=== PATIENT | male | born 1960 | race Caucasian/White ===

== ENCOUNTER 2020-02-03 18:37 | Emergency (ER) | payer MEDICAID, SELFPAY ==
[2020-02-03 18:39] VITALS: BP 156/103; PULSE 80; RESP 16; TEMP 36.7; O2SAT 100
[2020-02-03 18:40] VITALS: BP 156/103; PULSE 81; RESP 16; TEMP 36.7; O2SAT 99; BMI 28.3
--- NOTE | 2020-02-03 18:49 | EKG12_ITS ---
Test Reason : REPEAT EKG Blood Pressure : / mmHG Vent. Rate : 074 BPM Atrial Rate : 074 BPM P-R Int : 160 ms QRS Dur : 084 ms QT Int : 400 ms P-R-T Axes : 049 032 068 degrees QTc Int : 444 ms Normal sinus rhythm Possible Inferior infarct , age undetermined Abnormal ECG Confirmed by RADHA VENCES, JET ([id number]), editor managing newspaper RONNY DWYER ([id number]) on 02/08/2020 8:06:26 AM Referred By: ROJAS Confirmed By:JET GARCIA MD
--- NOTE | 2020-02-03 18:50 | ED.DCSUM_ITS ---
History of Present Illness Chief Complaint: Confusion Informant: Patient Narrative: 60-year-old male with past medical history of hypertension and coronary artery disease presents with concern for chest pain. States it began approximately 2 hours ago. States he has been working outside in heat for 2 days. States he has been drinking Pedialyte and plenty of water. States the chest pain is aching and retrosternal. Nonradiating. Denies any shortness of breath, nausea, vomiting, diaphoresis. Patient brought in by EMS who state that he had to periods of loss of consciousness. Was arousable to physical stimulus. Patient denies any headache, vision change, neck pain, numbness or tingling, slurred speech, head injury. States that he did have 2 alcoholic beverages today. Denies any drug abuse. Past Medical History - Allergies and Home Meds Allergies/Adverse Reactions: Allergies buspirone HCl [From BuSpar] Allergy (Verified 01/18/14 12:25) Rash paroxetine HCl [From Paxil] Allergy (Verified 01/18/14 12:25) Rash morphine Adverse Reaction (Verified 01/18/14 12:25) Other Primary Care Physician: Ernestine Conde MD [Primary Care Provider] - Past Medical History: - - HTN and CAD Surgical History: noncontributory, - - PCI without stenting Smoking Status: Never smoker Alcohol: Occasional Drugs: None Review of Systems General: Denies: Chills, Fever, Sweats Eyes: Denies: Visual changes - bilaterally, Diplopia ENT: Denies: Rhinorrhea, Sore throat Cardiovascular: Reports: Chest pain. Denies: Palpitations Respiratory: Denies: Dyspnea, Cough, Dyspnea on exertion Gastrointestinal: Denies: Abdominal pain, Nausea, Vomiting, Diarrhea, Melena, Hematochezia Genitourinary: Denies: Dysuria, Hematuria, Frequency Musculoskeletal: Denies: Back pain, Extremity Pain Skin: Denies: Rash, Wounds Neurological: Reports: - - syncope. Denies: Headache, Weakness, Numbness Physical Exam Vital Signs/Narrative: Vital Signs Temp Pulse Resp BP Pulse Ox 02/03/20 18:40 98.1 F 81 16 156/103 H 99 02/03/20 18:39 98.1 F 80 16 156/103 H 100 Inital Vital Signs reviewed: Yes General: Well nourished, Well developed, No Acute Distress Head: Normocephalic, Atraumatic Eyes: Perrl, EOMI ENT: Moist mucous membranes, No rhinorrhea Neck: Supple, Nontender Cardiovascular: Regular rate, Regular rhythm, No murmurs Respiratory: No distress, CTA bilaterally, Chest nontender Abdomen: Soft, Nontender, Nondistended, Normal bowel sounds Back: Nontender, Normal Inspection Extremities: Nontender, No edema Skin: Normal color, No rash Neurological: Alert, Oriented x3, Cranial nerves II-XII grossly intact, Normal Strength, Normal Sensation Psychological: Normal affect, Normal Mood Diagnostic/Tx/Re-eval Clinical Impression(s) from Imaging Studies Chest X-Ray 02/03/20 18:55 IMPRESSION: Normal x-ray examination of the chest. Electronically Signed: Leon Farooq MD at 19:50 EDT , Service support , Laboratory Data 02/03/20 02/03/20 02/03/20 18:55 18:55 18:55 WBC 6.9 RBC 4.86 Hgb 15.6 Hct 44.4 MCV 91.4 MCH 32.1 H MCHC 35.1 RDW Std Deviation 41.6 RDW Coeff of Krysten 12.4 Plt Count 177 MPV 9.7 Immature Gran % (Auto) 0.600 Neut % (Auto) 60.9 Lymph % (Auto) 30.0 [place] % (Auto) 6.2 Eos % (Auto) 1.7 Baso % (Auto) 0.6 Absolute Neuts (auto) 4.2 Absolute Lymphs (auto) 2.08 Nucleated RBC % 0 D-Dimer Quant (PE/DVT) 0.28 Sodium 141 Potassium 3.5 Chloride 108 H Carbon Dioxide 22.0 Anion Gap 11 BUN 12 Creatinine 1.13 Estim Creat Clear Calc 64.18 Est GFR (MDRD) Af Amer 85 Est GFR (MDRD) Non-Af 70 BUN/Creatinine Ratio 10.6 Glucose 104 Calcium 8.7 Troponin I < 0.015 - Rhythm Strip Rhythm Strip: Sinus Rhythm Rate: 77 Ectopy: None - EKG Initial EKG Interpretation: Sinus Rhythm - Sinus rhythm at 77 bpm. UT interval 162 ms. QTC of 430 ms. No evidence of ST elevation or depression at this time. Follow-up EKG Interpretation: Sinus Rhythm - Sinus rhythm at 74 bpm. UT interval 160 ms. QTC 444 ms. No change from previous. No ST changes. - Medical Decision Making Appears well nontoxic. Vital signs within normal limits. EKG nonischemic. Troponin negative. Second EKG following after 3 hours is also nonischemic. Lab work within normal limits. Patient refused second troponin given that his IV was not drawing and did not want to be stuck again. He wishes to be discharged at this time. I did advise him of the risk of not having another troponin drawn. Patient is feeling much improved after his fluid bolus. Asked to follow-up with primary care and return for any new or worsening symptoms. Patient agreeable and discharged home in stable condition. ED Disposition - Plan for ED Patient: Disposition: Home or Assisted Living Diagnosis: Chest pain, Syncope Instructions: ED Chest Pain Atypical Unkn Cause Referrals: Ernestine Conde MD [Primary Care Provider] -
--- NOTE | 2020-02-03 18:55 | RAD_ITS ---
STUDY: X-RAY CHEST REASON FOR EXAM: Male, 60 years old. PT WAS OVERHEATED FROM WORKING OUTSIDE YESTERDAY AND TODAY, PT C/O CHEST PAIN, PERIODS OF CONFUSION PER SQUAD. TECHNIQUE: Single AP portable view of the chest. COMPARISON: October 12, 2015 FINDINGS: The lungs are clear and expanded. There is no demonstrated pleural abnormality. Normal size heart. Normal mediastinum and yennifer. Normal visualized pulmonary arteries. Normal visualized aortic arch and descending thoracic aorta. Normal visualized thoracic spine. Normal visualized ribs, clavicles, and shoulders. There is no demonstrated abnormality of the visualized soft tissue structures of the upper abdomen. RAD/Chest 1 View (Portable) IMPRESSION: Normal x-ray examination of the chest. Electronically Signed: Leon Farooq MD at 19:50 EDT , Service support ,
[2020-02-03 19:02] LABS: Absolute Lymphocyte Count 2.08 X10^3/uL (0.83-4.51); Absolute Neutrophil Count 4.2 X10^3/uL (2.0-7.7); Basophil# 0.04 X10^3/uL; Basophil% 0.6 % (0-1); Eosinophil# 0.12 X10^3/uL; Eosinophils% 1.7 % (0-5); Hematocrit 44.4 % (40-54); Hemoglobin 15.6 g/dL (13.0-16.5); Lymphocyte # 2.08 X10^3/ul (4.0); Mean Corp Hgb Conc 35.1 g/dL (32-36); Mean Corpuscular Hgb 32.1 pg (27.0-32.0); Mean Corpuscular Volume 91.4 fL (80-94); Mean Platelet Vol. 9.7 fl (6.2-12.0); Monocyte# 0.43 X10^3/uL; Monocyte% 6.2 % (0-10); NRBC Flagged by Analyzer 0 % (0-5); Neutrophil # 4.23 X10^3/uL (2.7-7.7); Neutrophil % 60.9 % (47-70); Platelet Count 177 K/mm3 (150-450); RBC Distribution Width CV 12.4 % (11.6-14.6); RBC Distribution Width SD 41.6 fl (35.1-43.9); Red Blood Count 4.86 M/mm3 (4.6-6.2); White Blood Count 6.9 K/mm3 (4.4-11.0)
[2020-02-03] MEDS: 0.9% Normal Saline 1,000 ML 1000 ML IV (19:22)
[2020-02-03 19:29] LABS: D-Dimer Quantitative (DVT/PE) 0.28 FEU/ug/m (0.27-0.49)
[2020-02-03 19:38] LABS: Anion Gap 11 (5-15); BUN 12 mg/dL (7-18); BUN/Creat Ratio 10.6 RATIO (10-20); Calcium,Total 8.7 mg/dL (8.5-10.1); Chloride 108 mmol/L (98-107); Creatinine, Serum 1.13 mg/dL (0.70-1.30); EST Glomerular Filtration Rate 70 mL/min (>60); Est Glom Filt Rate - Afr Amer 85 mL/min (>60); Estimated Creatinine Clearance 64.18 ml/min; Glucose 104 mg/dL (74-106); Potassium 3.5 mmol/L (3.5-5.1); Sodium Level 141 mmol/L (136-145)
[2020-02-03 20:31] VITALS: BP 142/89; PULSE 74; RESP 16; O2SAT 97
[2020-02-03 21:02] VITALS: BP 154/104; PULSE 95; RESP 16; O2SAT 97
--- NOTE | 2020-02-03 21:55 | EKG12_ITS ---
Test Reason : CP Blood Pressure : / mmHG Vent. Rate : 077 BPM Atrial Rate : 077 BPM P-R Int : 162 ms QRS Dur : 082 ms QT Int : 380 ms P-R-T Axes : 038 019 060 degrees QTc Int : 430 ms Normal sinus rhythm Normal ECG Confirmed by RADHA VENCES, JET ([id number]), editor school photograph RONNY DWYER ([id number]) on 02/08/2020 8:06:11 AM Referred By: LAKSHMI Confirmed By:JET GARCIA MD
[2020-02-03 22:17] VITALS: BP 133/85; PULSE 78; RESP 16; O2SAT 96
[2020-02-03 22:23] VITALS: BP 133/85; PULSE 78; RESP 16; O2SAT 96
== END 2020-02-03 22:27 | disposition home or self-care (01) ==
PROVIDERS: Emergency Provider Emergency Medicine; PCP Internal Medicine
DX: R07.89 Other chest pain (principal); R55 Syncope and collapse; I10 Essential (primary) hypertension; I25.10 Atherosclerotic heart disease of native coronary artery without angina pectoris; Z79.82 Long term (current) use of aspirin; Z79.899 Other long term (current) drug therapy
CPT/HCPCS: 71045; 80048; 84484; 85025; 85379; 93005; 96360; 99285; J7030; A4216

== ENCOUNTER 2021-07-02 22:55 | Emergency (ER) | payer OTHER, MEDICAID, SELFPAY ==
[2021-07-02 22:55] VITALS: BP 139/89; PULSE 94; RESP 16; TEMP 36.6; O2SAT 100; BMI 28.1
[2021-07-02 22:57] VITALS: BP 139/89; PULSE 94; RESP 16; TEMP 36.6; O2SAT 100
--- NOTE | 2021-07-02 23:32 | EX.ED.DYSGE1 ---
HPI History of Present Illness Chief Complaint: Fatigue Detail of Chief Complaint: COVID-19 for more than a week. Informant: patient Onset/Context/Timing Onset: Days Context: Gradual Onset Timing: Continuous Current Severity: Mild Maximum Severity: Mild Narrative Narrative: 61-year-old male history of fibromyalgia, diabetes and osteoarthritis. Patient started having symptoms on giving and tested positive for COVID-19 around that time. Has had cough and chills. Just says he feels generally fatigued. Mild loose stools no vomiting and no fever. He is currently on no treatment. Prior similar symptoms: No Recent Illness/Hospitalization: No PFSH PFS Medical History Depression Fibromyalgia GERD (gastroesophageal reflux disease) HTN (hypertension) Hyperlipidemia Home Medications lorazepam 0.5 mg PO TID PRN PRN 01/18/14 [History Last Taken 01/18/14 10:00] meloxicam 15 mg PO DAILY 07/02/21 [History Last Taken Unknown] metoprolol succinate 25 mg PO DAILY 07/02/21 [History Last Taken Unknown] sildenafil 100 mg PO X1 PRN 07/02/21 [History Last Taken Unknown] dexamethasone [Decadron] 6 mg PO DAILY 10 Days #10 tab 07/03/21 [Rx Last Taken Unknown] Allergy/AdvReac Type Severity Reaction Status Date / Time buspirone HCl [From BuSpar] Allergy Rash Verified 07/02/21 23:21 paroxetine HCl [From Paxil] Allergy Rash Verified 07/02/21 23:21 morphine AdvReac Other Verified 07/02/21 23:21 Social History Smoking Status: Never smoker ROS ROS ED ROS Narrative Cough, myalgias, chills. Review of Systems ROS Unobtainable: Denies due to encephalopathy Constitutional Constitutional ED: Reports chills; Denies fever(s) Eyes Eyes: Denies change in vision ENT ENT ED: Denies ear pain Cardiovascular Cardiovascular: Denies chest pain Respiratory/Chest Respiratory/Chest: Reports cough; Denies dyspnea Gastrointestinal Gastrointestinal: Reports diarrhea; Denies abdominal pain, nausea or vomiting Genitourinary Genitourinary ED: Denies dysuria Musculoskeletal Musculoskeletal: Reports myalgias Integumentary Denies rash Neurologic Neurologic: Denies headache(s) Psychiatric Psychiatric: Denies depression Endocrine Endocrinology: Denies polyuria Allergic/Immunologic Allergic/Immunologic ED: Denies urticaria EXAM Physical Exam Narrative Exam Narrative: 61-year-old male no acute distress vital signs stable afebrile he does not look septic or toxic. HEENT exam unremarkable. Mildly dry mucous membranes. Neck nontender no lymphadenopathy. Lungs clear to auscultation bilaterally. Dry cough. Heart regular rate and rhythm no murmur. Abdomen soft nontender. Moving all 4 extremities. Calves are nontender without edema. Neurologically is awake and alert with no focal motor deficits. Back nontender. Const Vital Signs: 07/02/21 22:55 07/02/21 22:57 07/02/21 23:54 Temperature 97.8 F 97.8 F Temperature Source Temporal Temporal Pulse Rate 94 94 Respiratory Rate 16 16 Respiratory Effort Normal Non-Labored Respiratory Pattern Normal Blood Pressure 139/89 H 139/89 H Blood Pressure Mean 105 105 Pulse Ox 100 100 Positive well nourished and well developed; Negative for unkempt General Appearance ED: well developed and NAD; Negative for unkempt, cyanotic, diaphoretic or pallor HEENT Reports dry mucous membranes Negative for trauma Mouth ED: Yes dry mucous membranes Mouth: dry mucous membranes Eyes PERRL and EOMs intact bilaterally General Eye ED: Negative for pale conjunctiva or scleral icterus Neck no lymphadenopathy, supple and no JVD General: Negative for tenderness Chest Wall inspection of chest normal and palpation of chest normal Resp normal respiratory effort and clear to auscultation bilaterally Auscultation: Negative for rales, rhonchi or wheezes Cardio regular rate, regular rhythm, S1 normal heart sound, S2 normal heart sound and no murmurs GI normal to inspection, nondistended, normoactive bowel sounds, non-tender, non-distended and no masses Auscultation: normoactive bowel sounds Palpation: soft; Negative for tender or guarding Back/Spine no CVA tenderness General Back: Negative for CVA tenderness Cervical Spine: Negative for cervical spine tenderness Thoracic Spine / Upper Back: Negative for thoracic spinal tenderness or paraspinal muscle tenderness Extremity normal to inspection General Extremety ED: Negative for edema or tenderness General Extremity: Negative for edema Neuro oriented x3 Sensorium / Orientation: alert; Negative for orientation impaired, lethargic or stuporous Motor Exam: strength 5/5 throughout Psych mental status grossly normal Appearance: Negative for unkempt Mood & Affect: Negative for depressed Skin no rashes or lesions noted, no wounds and No skin turgor normal General Skin Exam: Negative for elasticity normal, jaundice or pallor MDM MDM MDM Narrative Medical decision making narrative: 61-year-old with Covid has how had symptoms about 10 days. He will be treated with IV fluids but he looks clinically mildly dehydrated. Screening labs and chest x-ray being obtained. He will be started on p.o. Decadron. Repeat exam at 12:15 AM patient is doing well. He is comfortable being discharged to home. Will be started on Decadron daily but he is out of the window for monoclonal antibodies because now he is day 12. He knows to return if worse. He will be quarantine at home. Lab Data Attestation: I reviewed the patient's lab results. Lab results narrative: See white count of 5. Hemoglobin 15. Platelets 162. Electrolytes unremarkable gap of 8 normal BUN and creatinine. Glucose 124. Labs: Laboratory Results - last 24 hr 07/02/21 07/02/21 23:45 23:45 WBC 5.0 RBC 4.90 Hgb 15.2 Hct 44.0 MCV 89.8 MCH 31.0 MCHC 34.5 RDW Std Deviation 38.6 RDW Coeff of Krysten 11.8 Plt Count 162 MPV 9.8 Immature Gran % (Auto) 0.600 Neut % (Auto) 56.1 Lymph % (Auto) 29.5 [place] % (Auto) 10.0 Eos % (Auto) 3.2 Baso % (Auto) 0.6 Absolute Neuts (auto) 2.8 Absolute Lymphs (auto) 1.48 Nucleated RBC % 0 Sodium 137 Potassium 4.0 Chloride 103 Carbon Dioxide 26.0 Anion Gap 8 BUN 8 Creatinine 1.01 Estim Creat Clear Calc 70.90 Est GFR (MDRD) Af Amer 96 Est GFR (MDRD) Non-Af 79 BUN/Creatinine Ratio 7.9 L Glucose 124 H Calcium 8.9 Radiography Chest X-Ray - ED: 1 View, Read by ED Physician, Right Infiltrate and Left Infiltrate Diagnostic Testing: Chest x-ray, single view, portable interpreted by myself is consistent with Covid pneumonitis with bilateral infiltrates. Normal cardiac silhouette. No effusions. Discharge Plan Triage Chief Complaint: Fatigue ED Provider: Paco Monroy Dx/Rx/DC Orders Clinical Impression: Fibromyalgia, COVID-19 Instructions: Human Coronaviruses Prescriptions: New dexamethasone [Decadron] 6 mg tablet 6 mg PO DAILY 10 Days Qty: 10 RF: 0 No Action lorazepam 0.5 MG tablet 0.5 mg PO TID PRN PRN (Reason: Anxiety) RF: 0 meloxicam 15 mg tablet 15 mg PO DAILY RF: 0 metoprolol succinate 25 mg tablet extended release 24 hr 25 mg PO DAILY RF: 0 sildenafil 100 mg tablet 100 mg PO X1 PRN (Reason: Erectile Dysfunction) RF: 0 Primary Care Provider: Ernestine Conde Referrals: Ernestine Conde MD [Primary Care Provider] - 1 Week if not improving Activity Restrictions/Additional Instructions: Are your symptoms are from COVID-19. Plenty of fluids and rest. Tylenol and Motrin for fever. Start the Decadron tomorrow he will take it every day for the next 10 days unless you are completely feeling better. Follow-up with your doctor if not improving or return if you are feeling a lot worse. Disposition Disposition: Home, Self Care
--- NOTE | 2021-07-02 23:50 | RAD_ITS ---
HISTORY: covid EXAMINATION/TECHNIQUE: XR Chest 1 View AP view COMPARISON: AP chest x-ray from 02/03/20 FINDINGS: LINES/DEVICES: None. LUNGS: Low lung volumes. Patchy bilateral pulmonary airspace opacities. No overt pulmonary edema. No sizable pleural effusion. No pneumothorax. MEDIASTINUM AND CARDIOVASCULAR STRUCTURES: Cardiac silhouette not enlarged. Central airways and mediastinal contour are unremarkable. BONES AND SOFT TISSUES: No acute findings. RAD/Chest 1 View (Portable) IMPRESSION: Hypoventilatory changes with bilateral pulmonary infiltrate. at 0025 Reported and signed by: Wojciech Borrero MD Electronically Signed: Wojciech Borrero MD at 0:24 EST Tel , Service support ,
[2021-07-02 23:53] LABS: Absolute Lymphocyte Count 1.48 X10^3/uL (0.83-4.51); Absolute Neutrophil Count 2.8 X10^3/uL (2.0-7.7); Basophil# 0.03 X10^3/uL; Basophil% 0.6 % (0-1); Eosinophil# 0.16 X10^3/uL; Eosinophils% 3.2 % (0-5); Hemoglobin 15.2 g/dL (13.0-16.5); Lymphocyte # 1.48 X10^3/ul (0.83-4.51); Lymphocyte % 29.5 % (19-41); Mean Corp Hgb Conc 34.5 g/dL (32-36); Mean Corpuscular Volume 89.8 fL (80-94); Mean Platelet Vol. 9.8 fl (6.2-12.0); NRBC Flagged by Analyzer 0 % (0-5); Neutrophil # 2.82 X10^3/uL (2.7-7.7); Neutrophil % 56.1 % (47-70); Platelet Count 162 K/mm3 (150-450); RBC Distribution Width CV 11.8 % (11.6-14.6); RBC Distribution Width SD 38.6 fl (35.1-43.9)
[2021-07-02] MEDS: 0.9% Normal Saline 1,000 ML 999 ML IV (23:53)
[2021-07-02] MEDS: dexAMETHasone 4 MG Tablet 6 MG PO (23:53)
[2021-07-03 00:05] LABS: Anion Gap 8 (5-15); BUN 8 mg/dL (7-18); BUN/Creat Ratio 7.9 RATIO (10-20); Calcium,Total 8.9 mg/dL (8.5-10.1); Chloride 103 mmol/L (98-107); Creatinine, Serum 1.01 mg/dL (0.70-1.30); EST Glomerular Filtration Rate 79 mL/min (>60); Est Glom Filt Rate - Afr Amer 96 mL/min (>60); Glucose 124 mg/dL (74-106); Sodium Level 137 mmol/L (136-145)
[2021-07-03 00:41] VITALS: PULSE 79; RESP 16; O2SAT 98
== END 2021-07-03 00:42 | disposition home or self-care (01) ==
PROVIDERS: Emergency Provider Emergency Medicine; PCP Internal Medicine
DX: U07.1 COVID-19 (principal); M79.7 Fibromyalgia; I10 Essential (primary) hypertension; E78.5 Hyperlipidemia, unspecified; F32.A Depression, unspecified; E11.9 Type 2 diabetes mellitus without complications; K21.9 Gastro-esophageal reflux disease without esophagitis; M19.90 Unspecified osteoarthritis, unspecified site; Z79.899 Other long term (current) drug therapy
CPT/HCPCS: 71045; 80048; 85025; 96360; 99283

== ENCOUNTER 2021-07-06 20:54 | Emergency (ER) | payer OTHER, MEDICAID, SELFPAY ==
[2021-07-06 20:54] VITALS: BP 137/80; PULSE 66; RESP 16; TEMP 36.4; O2SAT 96; BMI 28.0
[2021-07-06 21:01] VITALS: BP 137/80; PULSE 70; RESP 16; TEMP 36.4; O2SAT 96
--- NOTE | 2021-07-06 21:18 | CT_ITS ---
EXAM: CT ANGIOGRAPHY CHEST WITHOUT AND WITH INTRAVENOUS CONTRAST CLINICAL INDICATION: covid, sob TECHNIQUE: Helically acquired angiography images were obtained of the chest without and with intravenous contrast. CTDI vol (mGy): 31 DLP vol (mGy-cm): [address] exam was performed using one or more of the following dose reduction techniques: automated exposure control, adjustment of the mA and/or kV according to patient size, and/or use of iterative reconstruction technique. This report was created using Behalf report generation technology. MIP reconstructed images were created and reviewed. CONTRAST: IV 100mL [id number] COMPARISON: No prior chest CT. Chest x-ray 07/02/2021 FINDINGS: PULMONARY ARTERIES: No PE. Normal in caliber. No evidence of pulmonary embolism. AORTA: Unremarkable. Normal in caliber. No evidence of dissection. GREAT VESSELS OF AORTIC ARCH: Unremarkable. Normal in caliber. No evidence of dissection. LUNGS AND PLEURAL SPACES: Bilateral multilobar groundglass opacities. Small infiltrate at the inferior lingula. Subsegmental atelectasis at the posterior lower lobes. No dense consolidation. No pleural effusion or pneumothorax. No mass. HEART: Unremarkable. Heart size is normal. No pericardial effusion. No signs of right heart strain, ratio of right ventricle to left ventricle measures less than 1. MEDIASTINUM: Unremarkable. No mediastinal or hilar adenopathy. Esophagus is unremarkable. No hiatal hernia. THYROID: Unremarkable. No thyroid lesions. BONES/JOINTS: Unremarkable. No suspicious lytic or blastic abnormality. LIVER: Hepatomegaly and hepatic steatosis. CT/CTA Chest W/WO Contrast IMPRESSION: Bilateral pneumonia suspected. No PE. Electronically Signed: Yusef Calderon MD at 22:56 EST Tel , Service support ,
--- NOTE | 2021-07-06 21:18 | EKG12_ITS ---
Test Reason : SOB Blood Pressure : / mmHG Vent. Rate : 066 BPM Atrial Rate : 066 BPM P-R Int : 150 ms QRS Dur : 096 ms QT Int : 418 ms P-R-T Axes : 036 021 088 degrees QTc Int : 438 ms Normal sinus rhythm Normal ECG When compared with ECG of 03-FEB-2020 21:50, No significant change was found Confirmed by RADHA VENCES, JET ([id number]), order editor RONNY DWYER ([id number]) on 07/11/2021 7:29:08 AM Referred By: JOCELIN Confirmed By:JET GARCIA MD
--- NOTE | 2021-07-06 21:20 | EDS_ITS ---
HPI History of Present Illness Chief Complaint: Shortness of Breath Informant: patient Onset/Context/Timing Onset: Weeks Current Severity: Mild Maximum Severity: Moderate Narrative Narrative: Patient presents secondary to Covid symptoms. He developed symptoms on June 22 and tested positive on the . He presents to the ER tonight via squad secondary to shortness of breath, cough, fatigue. Patient was seen in the ER earlier this week and started on p.o. Decadron. He was outside the window for monoclonal antibody treatment. Patient states he has days that he feels good but then turns around and starts feeling horrible again. [facility] Medical History Depression Fibromyalgia GERD (gastroesophageal reflux disease) HTN (hypertension) Hyperlipidemia Home Medications lorazepam 0.5 mg PO TID PRN PRN 01/18/14 [History Last Taken 01/18/14 10:00] meloxicam 15 mg PO DAILY 07/02/21 [History Last Taken Unknown] metoprolol succinate 25 mg PO DAILY 07/02/21 [History Last Taken Unknown] sildenafil 100 mg PO X1 PRN 07/02/21 [History Last Taken Unknown] dexamethasone [Decadron] 6 mg PO DAILY 10 Days #10 tab 07/03/21 [Rx Last Taken Unknown] Allergy/AdvReac Type Severity Reaction Status Date / Time buspirone HCl [From BuSpar] Allergy Rash Verified 07/02/21 23:21 paroxetine HCl [From Paxil] Allergy Rash Verified 07/02/21 23:21 morphine AdvReac Other Verified 07/02/21 23:21 Social History Smoking Status: Never smoker ROS ROS ED Constitutional Constitutional ED: Reports chills; Denies fever(s) Eyes Eyes: Denies change in vision ENT ENT ED: Denies sore throat Cardiovascular Cardiovascular: Denies chest pain Respiratory/Chest Respiratory/Chest: Reports cough, dyspnea and sputum Gastrointestinal Gastrointestinal: Reports diarrhea; Denies abdominal pain, nausea or vomiting Genitourinary Genitourinary ED: Denies dysuria Musculoskeletal Musculoskeletal: Reports myalgias; Denies back pain Integumentary Denies rash Neurologic Neurologic: Reports weakness; Denies headache(s) Allergic/Immunologic Allergic/Immunologic ED: Denies urticaria EXAM Physical Exam Const Vital Signs: 07/06/21 20:54 07/06/21 21:01 07/06/21 21:39 Temperature 97.5 F L 97.5 F L 97.7 F L Temperature Source Temporal Temporal Temporal Pulse Rate 66 70 63 Respiratory Rate 16 16 15 Respiratory Effort Normal Respiratory Depth Normal Respiratory Pattern Normal Blood Pressure 137/80 H 137/80 H 118/83 H Blood Pressure Mean 99 99 94 Pulse Ox 96 96 94 Oxygen Delivery Method Room Air Room Air 07/06/21 22:28 07/06/21 23:00 Temperature Temperature Source Pulse Rate 91 72 Respiratory Rate 18 19 H Respiratory Effort Respiratory Depth Respiratory Pattern Blood Pressure 127/59 H 127/74 H Blood Pressure Mean 81 91 Pulse Ox 94 95 Oxygen Delivery Method Room Air Room Air Positive well nourished and well developed General Appearance ED: well developed HEENT Reports normocephalic and head/scalp atraumatic Eyes PERRL and EOMs intact bilaterally Neck supple Chest Wall inspection of chest normal and palpation of chest normal Resp normal respiratory effort and clear to auscultation bilaterally Cardio regular rate and regular rhythm GI non-tender Auscultation: hypoactive bowel sounds Palpation: soft Extremity normal to inspection Neuro oriented x3 Neuro Narrative: No focal neurologic deficits. Sensorium / Orientation: alert Psych Mood & Affect: depressed Skin no rashes or lesions noted MDM MDM MDM Narrative Medical decision making narrative: Patient is maintaining appropriate oxygen saturations on room air. Lab work and CTA of the chest is obtained. EKG ordered. Lab Data Attestation: I reviewed the patient's lab results. Labs: Laboratory Results - last 24 hr 07/06/21 07/06/21 07/06/21 21:00 21:00 21:00 WBC 10.1 RBC 4.89 Hgb 15.4 Hct 43.7 MCV 89.4 MCH 31.5 MCHC 35.2 RDW Std Deviation 38.2 RDW Coeff of Krysten 11.9 Plt Count 241 MPV 10.2 Neut % (Auto) Not Reportable Absolute Neuts (auto) 8.8 H Absolute Lymphs (auto) 0.20 L Total Counted 100 Neutrophils % (Manual) 85 H Band Neutrophils % 2 Lymphocytes % (Manual) 2 L Monocytes % (Manual) 8 Metamyelocytes % 2 H Myelocytes % 1 H Diff Path Review May foll Platelet Estimate ADEQUATE RBC Morphology N CHROM Anisocytosis RARE Macrocytosis RARE Sodium 142 Potassium 3.5 Chloride 107 Carbon Dioxide 24.0 Anion Gap 11 BUN 18 Creatinine 1.03 Estim Creat Clear Calc 69.52 Est GFR (MDRD) Af Amer 94 Est GFR (MDRD) Non-Af 78 BUN/Creatinine Ratio 17.5 Glucose 249 H Lactic Acid 2.9 H* Calcium 8.5 Troponin I High Sens 4 Radiography Diagnostic Testing: Clinical Impression(s) from Imaging Studies Chest CTA 07/06/21 21:18 IMPRESSION: Bilateral pneumonia suspected. No PE. Electronically Signed: Yusef Calderon MD at 22:56 EST Tel , Service support , EKG Initial EKG: Attestation: I personally reviewed and interpreted this EKG as follows: Interpretation: Sinus Rhythm (Sinus at 66 with no acute ischemia.) Treatment and Re-Evaluation Comments:: On repeat evaluation patient sleeping comfortably. He easily awakens. He does state that he feels slightly improved. He got a small amount of fluid with EMS. Lab work reviewed with him and unremarkable. CTA shows no evidence of PE but does show bilateral pneumonia. Nursing staff did ambulate the patient in the room. His O2 sat started at 92% and went up to 95%. Patient is to continue supportive care at home as well as the Decadron he is currently on. I did recommend he get a pulse oximeter to watch his oxygen levels at home. Discharge Plan Triage Chief Complaint: Shortness of Breath ED Provider: Kerry Agee Dx/Rx/DC Orders Clinical Impression: COVID-19 Instructions: Coronavirus Disease 2019 (COVID-19): Overview, Coronavirus Disease 2019 (COVID-19): Caring for Yourself or Others Prescriptions: No Action lorazepam 0.5 MG tablet 0.5 mg PO TID PRN PRN (Reason: Anxiety) RF: 0 meloxicam 15 mg tablet 15 mg PO DAILY RF: 0 metoprolol succinate 25 mg tablet extended release 24 hr 25 mg PO DAILY RF: 0 sildenafil 100 mg tablet 100 mg PO X1 PRN (Reason: Erectile Dysfunction) RF: 0 dexamethasone [Decadron] 6 mg tablet 6 mg PO DAILY 10 Days Qty: 10 RF: 0 Primary Care Provider: Ernestine Conde: Ernestine Conde MD [Primary Care Provider] - 1-2 Weeks Disposition Disposition: Home, Self Care
[2021-07-06 21:33] LABS: Hematocrit 43.7 % (40-54); Hemoglobin 15.4 g/dL (13.0-16.5); Mean Corp Hgb Conc 35.2 g/dL (32-36); Mean Corpuscular Hgb 31.5 pg (27.0-32.0); Mean Corpuscular Volume 89.4 fL (80-94); Mean Platelet Vol. 10.2 fl (6.2-12.0); POSITIVE COUNT YES; POSITIVE MORPHOLOGY YES; Platelet Count 241 K/mm3 (150-450); RBC Distribution Width CV 11.9 % (11.6-14.6); RBC Distribution Width SD 38.2 fl (35.1-43.9); Red Blood Count 4.89 M/mm3 (4.6-6.2); White Blood Count 10.1 K/mm3 (4.4-11.0)
[2021-07-06 21:39] VITALS: BP 118/83; PULSE 63; RESP 15; TEMP 36.5; O2SAT 94
[2021-07-06 21:39] LABS: Differential Indicated MANUAL DIFF
[2021-07-06 21:45] LABS: Anion Gap 11 (5-15); BUN 18 mg/dL (7-18); BUN/Creat Ratio 17.5 RATIO (10-20); Calcium,Total 8.5 mg/dL (8.5-10.1); Chloride 107 mmol/L (98-107); Creatinine, Serum 1.03 mg/dL (0.70-1.30); EST Glomerular Filtration Rate 78 mL/min (>60); Est Glom Filt Rate - Afr Amer 94 mL/min (>60); Estimated Creatinine Clearance 69.52 ml/min; Glucose 249 mg/dL (74-106); Potassium 3.5 mmol/L (3.5-5.1); Sodium Level 142 mmol/L (136-145); Troponin-I HS 4 pg/mL (3.0-78.0)
[2021-07-06 21:53] LABS: Lactic Acid 2.9 mmol/L (0.4-1.9)
[2021-07-06 22:13] LABS: Lymphocyte 2 % (19-41); Metamyelocyte 2 % (0-1); Monocyte 8 % (0-10); Myelocyte 1 % (0-0); Neutrophil-Band 2 % (0-5); Neutrophil-Segmented 85 % (47-70); Total Cells Counted 100 (MANUAL DIFF)
[2021-07-06 22:19] LABS: Absolute Neutrophil Count 8.8 X10^3/uL (2.0-7.7)
[2021-07-06 22:20] LABS: Anisocytosis RARE; Macrocytosis RARE; Platelet Estimate ADEQUATE (ADEQ); Red Cell Morphology N CHROM NORMAL (NORM C&C)
[2021-07-06 22:28] VITALS: BP 127/59; PULSE 91; RESP 18; O2SAT 94
[2021-07-06 23:00] VITALS: BP 127/74; PULSE 72; RESP 19; O2SAT 95
[2021-07-07 00:47] VITALS: BP 118/76; PULSE 75; RESP 16; O2SAT 94
[2021-07-07 00:48] VITALS: O2SAT 92
[2021-07-07 01:29] LABS: Reflex Lactate? Y
[2021-07-10 10:37] LABS: Pathologist Review Reviewed
== END 2021-07-07 00:56 | disposition home or self-care (01) ==
PROVIDERS: Emergency Provider Emergency Medicine; PCP Internal Medicine
DX: U07.1 COVID-19 (principal); I10 Essential (primary) hypertension; E78.5 Hyperlipidemia, unspecified; F32.A Depression, unspecified; K21.9 Gastro-esophageal reflux disease without esophagitis; M79.7 Fibromyalgia; Z79.899 Other long term (current) drug therapy
CPT/HCPCS: 71275; 80048; 83605; 84484; 85025; 93005; 99285; Q9967; A4216